=== PATIENT | male | born 1975 | race Native Hawaiian/Other Pacific Islander ===

== ENCOUNTER 2021-10-29 15:21 | Outpatient (CLI) | payer OTHER ==
[2021-10-29 15:35] LABS: PLATELET COUNT 305 K/uL (142-355)
[2021-10-29 16:03] LABS: POTASSIUM 4.6 mmol/L (3.6-5.2)
== END 2021-10-29 19:06 | disposition home or self-care (01) ==
LOC: LAB 15:21
PROVIDERS: ATTEND Internal Medicine
DX: Z00.00 Encounter for general adult medical examination without abnormal findings (principal); Z12.5 Encounter for screening for malignant neoplasm of prostate; N40.0 Benign prostatic hyperplasia without lower urinary tract symptoms; Z79.899 Other long term (current) drug therapy
CPT/HCPCS: 80053; 80061; 81000; 84153; 84439; 84443; 85027